=== PATIENT | female | born 1970 | race Caucasian/White ===

== ENCOUNTER 2016-09-04 11:00 | Observation (INO) | payer SELFPAY ==
[~2016-09-04] VITALS: Ht 167.6 cm; Wt 89.0 kg
--- NOTE | ~2016-09-04 | ECH ---
Transthoracic Echocardiography Report (TTE) Demographics Patient Name NOREEN MCPHERSON Date of Study 09/04/2016 Patient Number [id number] Visit Number [id number] Date of 1970 Room Number 404 Accession Number [id number] Gender Female Age 46 year(s) Referring Savita Enriquez MD Service Agent Leigh López [facility] Physician Physician Rica Pal MD Cardiology Teacher Physician Sb Supervising Ordering Physician Savita Enriquez MD, MD/P Nurse Stress Head Of It Conclusions Contractility Score Summary At rest the following contractility abnormalities were noted: Hypokinesis of the Mid nallely-lateral, the Mid infero-lateral, the Basal infero-lateral and the Basal nallely-lateral segments. Contractility of all other segments appeared normal. Summary Technically fair exam. The estimated left ventricular ejection fraction is 55-60% Subtle wall motion abnormalities. Moderate left ventricular hypertrophy. No significant valvular abnormalities. The ascending aorta appears mildly dilated. The maximum diameter measures 3.47 cm. Recommendation The patient will be given the results of this study by the physician who ordered the exam. Procedure Type of Study TTE procedure:Echo Complete SF. Procedure Date Date: 09/04/2016 Start: 05:12 PM Technical Quality: Adequate visualization Indications:Chest pain and Coronary artery disease. Appropriate Use Criteria: 9 Height: 66 inches Weight: 197 pounds BSA: 1.99 m Rhythm: Within normal limits HR: 82 bpm BP: 179/121 mmHg M-Mode/2D Measurements LV Diastolic Dimension: 5.03 cm LV Systolic Dimension: 4.21 cm LV Septum Diastolic: 1.37 cm LV PW Diastolic: 1.38 cm AO Root Dimension: 3.1 cm Cardiac Output: 4.68 l/min LA Dimension: 4.16 cm Cardiac Index: 2.35 l/min*m RV Diastolic Dimension: 2.61 cm LA volume index: 30 ml/m LVOT: 1.74 cm LVOT VTI: 24.03 cm RV Base: 3 cm LV Stroke volume: 57.11 ml RV Mid: 2.6 cm LV Stroke volume index: 28.7 ml/m RV Length: 7.5 cm TAPSE: 1.7 cm TDI-S': 12 cm/s Doppler Measurements AV Peak Velocity: 1.6 m/s MV Peak E-Wave: 0.74 m/s AV Peak Gradient: 10.24 mmHg MV Peak A-Wave: 0.65 m/s AV Mean Gradient: 5.53 mmHg MV E/A Ratio: 1.13 LVOT Peak Velocity: 1.08 m/s MV P1/2t: 59.7 msec AV Area (Continuity):1.91 cm MV Deceleration Time: 248.6 msec MV Area (PHT): 3.69 cm PV Peak Velocity: 0.82 m/s PV Peak Gradient: 2.67 mmHg RA Area: 10.92 cm Findings Left Ventricle The left ventricle is normal in size . Moderate left ventricular hypertrophy. Diastolic assessment reveals normal relaxation. Right Ventricle Normal right ventricle structure and function. Left Atrium Normal left atrial size. Right Atrium Normal right atrial size. Mitral Valve Normal mitral valve structure and function. Mild mitral regurgitation by color Doppler. Aortic Valve Normal aortic valve structure and function. Tricuspid Valve Normal tricuspid valve structure and function. Trivial tricuspid regurgitation by color Doppler. Pulmonic Valve Normal pulmonic valve structure and function. Pericardial Effusion No evidence of pericardial effusion. Miscellaneous The ascending aorta appears mildly dilated. The maximum diameter measures 3.47 cm. Pleural Effusion No evidence of pleural effusion. Contractility Score LV regional wall motion:(0-Non visualized 1-Normal 2-Hypokinesis 3-Akinesis 4-Dyskinesis 5-Aneurysm) Signature
[2016-09-06] MEDS ORDERED: NORVASC DPS10 MG PO (16:58)
[2016-09-06] MEDS ORDERED: CARVEDILOL25 MG PO (16:58)
[2016-09-06] MEDS ORDERED: ZESTORETIC 20/11 TAB PO (16:58)
[2016-09-06] MEDS ORDERED: ASPIRIN EC81 MG PO (16:59)
[2016-09-06] MEDS ORDERED: NICOTINE PATCH1 EAC5 TD (16:59)
[2016-09-06] MEDS ORDERED: ATORVASTATIN CA40 MG PO (16:59)
[2016-09-06] MEDS ORDERED: NITROSTAT0.4 MG SL (17:00)
--- NOTE | 2016-09-12 14:01 | ER ---
ADMIT: 09/04/2016 RM/LOC: 404 [facility] MR#: [id number] ACC#: [id number] [address] [id number] NOREEN MCPHERSON [address] [place] [address] Emergency Room Report SEX: F AGE: 46 : 1970 DATE: 09/04/2016 ADDENDUM: See T-sheet for complete H and P. A 46-year-old female with known coronary artery disease with a stent, presents with about 18 hours of left-sided chest, shoulder, and left scapular pain. She states this goes into her upper arm on the left side also. She has had maybe some shortness of breath with this, but does have some shortness of breath at baseline. Has had no nausea, vomiting, or diaphoresis. She states she is not always consistent with her chronic medications, which she takes for high blood pressure, high cholesterol, and she has not been taking her aspirin that she is supposed to be taking. We did our cardiac routine on the patient and she did get relief of her pain which was a 2/10 when the nitroglycerin was given. She remained chest pain free and nitroglycerin paste was placed. She had received aspirin while in the Emergency Department also. Her EKG showed no acute findings. Her cardiac enzymes were negative. Chest x-ray was negative. She does not have a primary care doctor at this time, but has seen Dr. Pal. I did speak to Dr. Pal and he agrees to admit the patient primarily to the Cardiology Service for further rule out of her chest pain. She is admitted with diagnoses with chest pain in stable and improved condition. Héctor Santos MD/ shahab JOB #: [id number] CC: Sb Pal MD, Attending Physician Sb Pal MD, Family Physician
--- NOTE | 2016-10-05 15:03 | HP ---
ADMIT: 09/04/2016 RM/LOC: 404 [facility] MR#: [id number] [facility]#: [id number] [address] [facility] [address] [place] [id number] NOREEN MCPHERSON [address] [place] [address] History and Physical SEX: F AGE: 46 : 1970 CORRECTED: 09/08/2016 1052 [facility] DATE OF SERVICE: 09/04/2016 REASON FOR CONSULTATION: Left shoulder and upper arm pain. AMOR Sanchez student dictating for Julianna Barney MD HISTORY OF PRESENT ILLNESS: The patient is a 46-year-old female who presented to the ER today at noon. Today, I had the opportunity to consult her for cardiology regarding her left shoulder and upper arm pain. The patient has a personal history of hypertension, CAD, depression, and status post PCI in 2010. The patient is a life-time smoker with a 54-pack per year smoking history. The patient admits that this pain or tingling sensation has been going on for weeks to months on the left side and it is very similar to the presentation prior to her angina in 2010. The patient admits that she was not doing any strenuous exercise or activity. She has not changed anything in her diet. She denies drug use. She said the pain occurred while she was at home. The patient was last seen at the [facility] in April 2014. When asked if the patient had regularly followed up with her heart doctors, she admits that she has not. The patient also admits that she has not been taking her medications as indicated. Last echo was done in March 2014, which reveals an ejection fraction of 60% and her last stress was in 2012. PAST MEDICAL HISTORY: Significant for hypertension, depression, CAD, status post PCI in 2010. PAST SURGICAL HISTORY: Status post PCI with stent placement. FAMILY HISTORY: The patient states her father had myocardial infarction and hypertension. She also believes there is diabetes in her family. SOCIAL HISTORY: The patient currently works at [employer]. She is . She is a life-time smoker, consuming 54 packs per year of smoking history. The patient has a history of using methamphetamine. At this time, she said she is not using. ALLERGIES: NKDA. MEDICATIONS: 1. Aspirin STK. 2. Coreg 25 mg b.i.d. p.o. 3. Klor-Con M20 STK. 4. Maalox DPS STK. 5. Nitro b.i.d. 2% STK. 6. Nitrostat. 7. Norvasc 10 mg p.o. 8. Zestril 20 mg b.i.d. p.o. 9. Zocor 20 mg at bedtime p.o. ADMIT: 09/04/2016 RM/LOC: 404 [facility] MR#: [id number] [address] [place] [id number] [place] [id number] [place] [address] History and Physical SEX: F AGE: 46 : 1970 REVIEW OF SYSTEMS: GENERAL: The patient admits to tiring easily and this occurred all the time. She denies recent fever, chills, or sweats. She also admits to 10 pound weight gain. EYES: Denies double vision, blurred vision, cataracts, or glaucoma. ENT: Denies hearing loss or problems with nose, mouth or throat. RESPIRATORY: The patient admits to snoring loudly, waking up 4 times a night and tiring first thing in the morning. She also admits using 3 pillows when she sleeps. The patient denies asthma, wheezing, chronic cough, blood sputum, emphysema, or bronchitis. GASTROINTESTINAL: Denies heartburn or difficulty swallowing. No change in bowel habits. Denies dark or bloody stools. No history of ulcers, hiatal hernia, or gallbladder or liver disease. GENITOURINARY: Denies dysuria, hematuria, nocturia, urinary tract infection, or kidney stones. Denies history of renal insufficiency or failure. MUSCULOSKELETAL: Denies history of arthritis or gout. Denies muscle or joint pains. ENDOCRINE: Denies history of thyroid dysfunction or diabetes. HEMATOLOGIC: Denies history of anemia, easy bruising, or cancer. NEUROLOGICAL: The patient admits to numbness and tingling, especially on her left side and in her fingers bilaterally. She denies chronic headaches, stroke, or seizure disorder. PSYCHIATRIC: The patient admits to the person. The patient denies mental illness and anxiety problem. PHYSICAL EXAMINATION: VITAL SIGNS: Temperature 97.1, pulse 77, respirations 18, blood pressure 179/121, and O2 is 95% on room air. The patient's weight is 197. GENERAL: This patient admits to numbness and tingling in her fingers and feels tired. SKIN: [place], warm and dry. EYES: Sclerae clear. No xanthelasmas. ENT: Oral mucosa is pink and moist. No jugular venous distention or carotid bruits. CHEST: Respirations are even and unlabored. Lungs are clear to auscultation. HEART: Regular rate and rhythm. Normal S1, S2. No murmurs, rubs or gallops. ABDOMEN: Soft and nontender. MUSCULOSKELETAL: Gait is normal. EXTREMITIES: Peripheral pulses palpable. No clubbing, cyanosis or edema. PSYCHIATRIC: Alert and oriented. Mood and affect are appropriate. DIAGNOSTIC DATA: White blood cell count 10.9, hemoglobin 14.3, hematocrit 43.9, and platelets are 312. Sodium is 143, potassium 3.3, chloride 109, bicarb is 25, BUN is 15, creatinine 1.1, and glucose 133. Calcium 8.7. CK 144, CK-MB is 2.1. GFR is 60 and troponin was less than 0.015. EKG revealed sinus rhythm probable left atrial enlargement, inferior infarct which is old and prolonged QT interval. ADMIT: 09/04/2016 RM/LOC: 404 [facility] MR#: [id number] [address] [place] [address] [place] [id number] NOREEN MCPHERSON [address] [place] [address] History and Physical SEX: F AGE: 46 : 1970 IMPRESSION AND PLAN: 1. Hypertension. 2. Coronary artery disease status post PCI. 3. Pain staying on left side. 4. Tobacco use. I suspect her symptoms are likely noncardiac. We will resume her home blood pressure medications at this time. We will continue to trend her enzymes and EKG. We will also get an echo and evaluate her cardiac function. We will use this to decide whether we need to get a stress test versus cath or medical management. Thank you for the Cardiology consult. I have read and agree with the documentation that has been completed regarding this visit. By signing this record, I attest that the documentation was completed in my physical presence and is an accurate record of the encounter. AMOR Sanchez Student / Julianna Barney MD / shahab JOB #: [id number] CC: Sb Pal MD, Attending Physician Sb Pal MD, Family Physician CORRECTED: 09/08/2016 1052 NJV
== END 2016-09-05 10:50 | disposition home or self-care (01) ==
LOC: ER 11:00 → 4PCU 12:20
PROVIDERS: ADMIT Internal Medicine Cardiovascular Disease
DX: I10 Essential (primary) hypertension (principal); R07.9 Chest pain, unspecified; I25.10 Atherosclerotic heart disease of native coronary artery without angina pectoris; F32.9 Major depressive disorder, single episode, unspecified; F17.210 Nicotine dependence, cigarettes, uncomplicated; Z95.5 Presence of coronary angioplasty implant and graft